=== PATIENT | female | born 1975 | race Two or more races ===

== ENCOUNTER 2017-01-11 11:32 | Emergency (ER) | payer BC, OTHER ==
[~2017-01-11] VITALS: Ht 162.6 cm; Wt 77.6 kg
[~2017-01-11 11:32] MED LIST: BUTACAP; CYCL-181; HYDR-1421
[2017-01-11 13:07] VITALS: BP 129/77
[2017-01-11 13:57] LABS: Hepatitis B Surface Antibody Positive
== END 2017-01-11 14:38 | disposition home or self-care (01) ==
LOC: ER 11:32
DX: Z77.21 Contact with and (suspected) exposure to potentially hazardous body fluids (principal)
CPT/HCPCS: 36415; 86703; 86706; 86803; 87340

== ENCOUNTER 2017-05-28 09:41 | Emergency (ER) | payer OTHER ==
[~2017-05-28] VITALS: Ht 162.6 cm; Wt 76.2 kg
[2017-05-28 10:04] VITALS: BP 141/62
[2017-05-28 10:04] LABS: Basophils # (auto) 0 uL; Basophils % (auto) 0.4 % (0.0-2.0); Eosinophils # (auto) 0.1 uL; Eosinophils % (auto) 0.9 % (0.0-7.0); Hemoglobin 15.2 g/dL (12.2-16.2); Lymphocytes # (auto) 1.7 uL; Lymphocytes % (auto) 20.9 % (10.0-50.0); Mean Corpuscular Hemoglobin 31.9 pg (28.0-32.0); Mean Corpuscular Hgb Conc. 34.6 g/dL (32.0-36.0); Mean Corpuscular Volume 92.2 fL (80.0-100.0); Monocytes # (auto) 0.4 uL; Monocytes % (auto) 5.2 % (0.0-12.0); Neutrophils # (auto) 5.9 uL; Neutrophils % (auto) 72.6 % (37.0-80.0); Platelet Count (auto) 340 10^3/uL (140-450); Red Blood Cells 4.77 10^6/uL (4.0-5.20); Red Cell Distribution Width 13.4 % (11.8-14.3); White Blood Cell 8.1 10^3/uL (4.4-10.8)
[2017-05-28 10:41] LABS: Albumin 4.3 g/dL (3.4-5.0); BUN/Creatinine Ratio 12.9; Bilirubin, Total 0.5 mg/dL (0.2-1.0); Calcium 9.3 mg/dL (8.5-10.1); Total Protein 7.9 g/dL (6.4-8.2)
[2017-05-28 10:43] LABS: Urine Bacteria FEW /hpf (None Seen); Urine Blood Negative /uL (Negative); Urine Specific Gravity 1.009 (1.001-1.035); Urine WBC 1 /hpf (0 - 5)
[2017-05-28] MEDS ORDERED: SODIUM CHLORIDE 0.9% 1,000 ML IV ONE (11:00)
[2017-05-28] MEDS ORDERED: NALBUPHINE HCL 10 MG/1ml INJECTION IV ONE (11:15)
[2017-05-28] MEDS ORDERED: ONDANSETRON HCL 4 MG/2 ML VIAL IV ONE (11:15)
[2017-05-28] MEDS ORDERED: IOHEXOL 300 MG/ML 100ML BOTTLE IJ ONE (12:42)
== END 2017-05-28 13:55 | disposition home or self-care (01) ==
LOC: ER 09:41
DX: N83.202 Unspecified ovarian cyst, left side (principal)
CPT/HCPCS: 36415; 74177; 76830; 76856; 80053; 81001; 85025; 96361; 96374; 99285; J2300; J2405; J7030; Q9967

== ENCOUNTER 2018-03-15 12:58 | Emergency (ER) | payer BC, OTHER ==
[~2018-03-15] VITALS: Ht 162.6 cm; Wt 78.9 kg
[2018-03-15 13:13] VITALS: BP 115/64
[2018-03-15] MEDS ORDERED: KETOROLAC TROMETH 60MG/2ML VIAL IM ONE (15:00)
== END 2018-03-15 15:36 | disposition home or self-care (01) ==
LOC: ER 13:01
DX: S72.455A Nondisplaced supracondylar fracture without intracondylar extension of lower end of left femur, initial encounter for closed fracture (principal); X50.1XXA Overexertion from prolonged static or awkward postures, initial encounter; Y93.89 Activity, other specified; Y99.8 Other external cause status; Y92.89 Other specified places as the place of occurrence of the external cause
CPT/HCPCS: 73721; 96372; 99284; J1885

== ENCOUNTER → 2019-05-18 | Outpatient (CLI) | payer OTHER | END | disposition home or self-care (01) | LOC: LAB 14:13 | PROVIDERS: ATTEND Nurse Practitioner Family | DX: Z03.818 Encounter for observation for suspected exposure to other biological agents ruled out (principal) | CPT/HCPCS: C9803; U0003 ==

== ENCOUNTER → 2019-08-28 | Outpatient (CLI) | payer OTHER | END | disposition home or self-care (01) | LOC: LAB 15:00 | PROVIDERS: ATTEND Nurse Practitioner Family | DX: Z20.828 Contact with and (suspected) exposure to other viral communicable diseases (principal) ==

== ENCOUNTER → 2020-01-26 | Outpatient (CLI) | payer OTHER | END | disposition home or self-care (01) | LOC: LAB 07:36 | PROVIDERS: ATTEND Physician Assistant | DX: Z20.828 Contact with and (suspected) exposure to other viral communicable diseases (principal) | CPT/HCPCS: C9803; U0003 ==

== ENCOUNTER 2022-02-19 18:27 | Emergency (ER) | payer OTHER ==
[~2022-02-19] VITALS: Ht 167.6 cm; Wt 72.0 kg
[~2022-02-19 18:27] MED LIST changes: +DIAZ5TAB PO
[2022-02-19] MEDS ORDERED: ALBUTEROL MEDNEB 2.5 mg/3ml NEB ONE (18:35)
[2022-02-19] MEDS ORDERED: ALBUTEROL SULF 2.5 MG/0.5ML(0.5%) NEB SOLN NEB ONE (18:45)
[2022-02-19] MEDS ORDERED: IPRATROPIUM BROM 0.5 MG/2.5ML INH SOL NEB ONE (18:45)
[2022-02-19] MEDS: MAGNESIUM SULFATE 1GM/100ML 100 ML IV SCH ×2 (19:07→20:21)
[2022-02-19 21:10] VITALS: BP 135/61
== END 2022-02-19 21:13 | disposition home or self-care (01) ==
LOC: ER 18:28
DX: J45.901 Unspecified asthma with (acute) exacerbation (principal)
CPT/HCPCS: 94640; 96365; 96366; 99284; J3475; J7644